=== PATIENT | female | born 1980 | race Hispanic/Latino ===

== ENCOUNTER 2019-04-06 06:12 | Emergency (ER) | payer SELFPAY ==
[2019-04-06 06:34] VITALS: BP 121/68
[2019-04-06 06:53] LABS: Basophils % (Auto) 0.3 % (0.0-1.8); Eosinophils # (Auto) 0.1 K/mm3 (0.0-0.4); Eosinophils % (Auto) 0.9 % (0.0-4.3); Hematocrit 35.5 % (30.3-42.9); Hemoglobin 11.7 gm/dl (10.1-14.3); Lymphocytes % (Auto) 23.7 % (13.4-35.0); Mean Corpuscular HGB Conc 33 % (30-34); Mean Corpuscular Volume 89 fl (79-97); Monocytes % (Auto) 11.5 % (0.0-7.3); Platelet Count 386 K/mm3 (140-440); Red Blood Count 3.97 M/mm3 (3.65-5.03); Red Cell Distribution Width 17.7 % (13.2-15.2)
[2019-04-06 07:03] LABS: BUN/Creatinine Ratio 20; Blood Urea Nitrogen 16 mg/dL (7-17); Calcium 8.7 mg/dL (8.4-10.2); Hemolysis Index 0
--- NOTE | 2019-04-06 07:23 | Emergency Department Report ---
ED General Adult HPI - General Chief complaint: Psych Stated complaint: BLISTERS ON FEET/MH EVAL/MED REFILL Time Seen by Provider: 04/06/19 06:52 Source: patient, EMS Mode of arrival: Stretcher Limitations: No Limitations - History of Present Illness Initial comments: 39-year-old female presents to ED via EMS. Patient reports she has been smoking crack, walking all around, and has blisters to her feet. Patient reports the history of bipolar and schizophrenia, states she has been off her medication for one month, however she does not know the names of her medications. Patient denies SI, HI, or hallucinations. Patient states she is "exhausted" and needs to lie down for a bit. -: unknown Location: left, right, lower extremity Consistency: constant Improves with: immobilization Worsens with: other (walking) Associated Symptoms: denies other symptoms - Related Data Allergies Allergy/AdvReac Type Severity Reaction Status Date / Time naproxen Allergy Unknown Verified 04/06/19 06:26 ED Review of Systems ROS: Stated complaint: BLISTERS ON FEET/MH EVAL/MED REFILL Other details as noted in HPI Comment: All other systems reviewed and negative Musculoskeletal: other (reports foot pain ) Skin: other (reports blisters) Psychiatric: denies: auditory hallucinations, homicidal thoughts, suicidal thoughts ED Past Medical Hx - Past Medical History Previous Medical History?: Yes Hx Psychiatric Treatment: Yes Additional medical history: bipolar, schizophrenia - Surgical History Past Surgical History?: No - Social History Smoking Status: Current Every Day Smoker ED Physical Exam - General Limitations: No Limitations General appearance: alert, in no apparent distress, other (appears unkempt) - Head Head exam: Present: atraumatic, normocephalic - Eye Eye exam: Present: normal appearance - ENT ENT exam: Present: mucous membranes moist - Neck Neck exam: Present: normal inspection - Respiratory Respiratory exam: Present: normal lung sounds bilaterally. Absent: respiratory distress - Cardiovascular Cardiovascular Exam: Present: regular rate, normal rhythm - GI/Abdominal GI/Abdominal exam: Absent: distended - Extremities Exam Extremities exam: Present: other (blisters to bilateral feet, no purulent discha rge or evidence of infection) - Neurological Exam Neurological exam: Present: alert, oriented X3 - Psychiatric Psychiatric exam: Present: normal affect, normal mood. Absent: homicidal ideation, suicidal ideation - Skin Skin exam: Present: warm, dry, intact, normal color ED Course Vital Signs 04/06/19 06:33 Temperature 98 F Pulse Rate 70 Respiratory 16 Rate Blood Pressure 121/68 [Right] O2 Sat by Pulse 97 Oximetry ED Medical Decision Making - Lab Data Result diagrams: 04/06/19 06:35 04/06/19 06:35 - Medical Decision Making No SI, HI, or psychotic features present. Pt given info for outpt follow-up for medications. Does not meet inpatient criteria, will discharge at this time. - Differential Diagnosis drug abuse, bipolar, schizophrenia Critical care attestation.: If time is entered above; I have spent that time in minutes in the direct care of this critically ill patient, excluding procedure time. ED Disposition Clinical Impression: Blister of foot, Cocaine abuse Disposition: TO HOME OR SELFCARE Is pt being admited?: No Condition: Stable Instructions: Blister (ED) Referrals: [facility] [Outside] - 3-5 Days [facility] [Outside] - 3-5 Days [facility] [Provider Group] - 3-5 Days [facility] [Outside] - 3-5 Days Time of Disposition: 07:24
== END 2019-04-06 08:04 | disposition home or self-care (01) ==
LOC: ED 06:12
DX: S90.822A Blister (nonthermal), left foot, initial encounter (principal); S90.821A Blister (nonthermal), right foot, initial encounter; F31.9 Bipolar disorder, unspecified; F20.9 Schizophrenia, unspecified; F17.200 Nicotine dependence, unspecified, uncomplicated; Z88.8 Allergy status to other drugs, medicaments and biological substances; X58.XXXA Exposure to other specified factors, initial encounter; Y93.89 Activity, other specified; Y92.89 Other specified places as the place of occurrence of the external cause; Y99.8 Other external cause status
CPT/HCPCS: 36415; 80048; 80320; 84703; 85025; G0480

== ENCOUNTER 2019-04-06 20:16 | Emergency (ER) | payer MEDICARE ==
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
[2019-04-06 21:53] LABS: Basophils % (Auto) 0.5 % (0.0-1.8); Eosinophils # (Auto) 0.1 K/mm3 (0.0-0.4); Eosinophils % (Auto) 0.9 % (0.0-4.3); Hematocrit 35.2 % (30.3-42.9); Hemoglobin 11.5 gm/dl (10.1-14.3); Lymphocytes # (Auto) 2.7 K/mm3 (1.2-5.4); Lymphocytes % (Auto) 26.2 % (13.4-35.0); Mean Corpuscular HGB Conc 33 % (30-34); Mean Corpuscular Volume 90 fl (79-97); Monocytes % (Auto) 9.5 % (0.0-7.3); Platelet Count 411 K/mm3 (140-440); Red Blood Count 3.93 M/mm3 (3.65-5.03); Red Cell Distribution Width 17.6 % (13.2-15.2)
[2019-04-06 22:00] LABS: BUN/Creatinine Ratio 19; Blood Urea Nitrogen 15 mg/dL (7-17); Calcium 8.7 mg/dL (8.4-10.2); Hemolysis Index 3
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
[2019-04-07 01:11] LABS: Bacteria,Urine 2+ /HPF (Negative); Bilirubin,Urine NEG (Negative); Blood,Urine NEG (Negative); Color,Urine Amber (Yellow); Mucus,Urine 3+ /HPF; Urobilinogen,Urine < 2.0 mg/dL (<2.0)
[2019-04-07 01:14] LABS: Amphetamine Screen,Urine PRESUMPTIVE NEGATIVE; Benzodiazepines Screen,Urine PRESUMPTIVE NEGATIVE; Methadone Screen,Urine PRESUMPTIVE NEGATIVE; Opiate Screen,Urine PRESUMPTIVE NEGATIVE
[2019-04-07 01:49] LABS: Cannabinoid Screen,Urine PRESUMPTIVE POSITIVE; Cocaine Screen,Urine PRESUMPTIVE POSITIVE
[2019-04-07] MEDS ORDERED: POTASSIUM CHLORIDE ER 20 MEQ TAB PO ONE (02:01)
[2019-04-07] MEDS ORDERED: levoFLOXacin 500 MG TAB PO SCH (02:02)
--- NOTE | 2019-04-07 10:33 | Consultation ---
History of Present Illness - Reason for Consult Consult date: 04/07/19 Reason for consult: Mental Health Evaluation Requesting physician: RICK DE LEÓN - Chief Complaint Chief complaint: "I need help for my drug use" - History of Present Psychiatric Illness 39 y.o. white female who presented to the ER for SI's. The patient was seen twice on 04/06/2019. Psychiatry was consulted to see the patient for Si's. Today the patient was calm during the assessment. She stated that her mental state isn't right. She stated that she have been using drugs for several years and want help. She stated that she has a hx of depression and took several antidepressants in the past. She stated that her dug abuse is driving her "crazy." She rate her depression 6/10, with 10 being the worse. She would not confirm or deny SI's when asked. She denies any previous suicide attempts in the past. She denies HI's and AVH's. She denies a poor appetite, but acknowledged erratic sleep because of her "drug binge" recently. She denies alcohol consumption (etoh). Medications and Allergies Allergies Allergy/AdvReac Type Severity Reaction Status Date / Time naproxen Allergy Unknown Verified 04/06/19 06:26 Home Medications Medication Instructions Recorded Confirmed Last Taken Type No Known Home Medications [No 04/07/19 04/07/19 Unknown History Reported Home Medications] Active Meds: Active Medications Levofloxacin (Levaquin) 500 mg PO QDAY JONO Stop: 04/09/19 02:02 Last Admin: 04/07/19 02:09 Dose: 500 mg Documented by: Past psychiatric history - Past Medical History Past Medical History: No medical history Past Surgical History: No surgical history - past Psychiatric treatment and history psychiatric treatment history: Hx of depression and substance abuse. Denies a fam psy hx. - Social History Social history: other (Homeless) Mental Status Exam - Vital signs Last Vital Signs Temp 98.2 F 04/07/19 08:02 Pulse 78 04/07/19 08:02 Resp 18 04/07/19 08:02 BP 136/62 04/07/19 08:02 Pulse Ox 97 04/07/19 08:02 - Exam Narrative exam: MSE: Appearance: calm Behavior: regular eye contact Speech: regular rate and tone Mood: "depressed" Affect: congruent to mood Thought Process: circumstantial Thought Content: denies HI's and AVH's Motor Activity: sitting up in bed Cognition: A/O x3 Insight: fair Judgment: variable Results Result Diagrams: 04/06/19 21:19 04/06/19 21:19 Abnormal lab results 04/06/19 04/06/19 04/06/19 Range/Units 21:19 21:19 21:19 RDW (13.2-15.2) % [place] % (Auto) (0.0-7.3) % [place] # (0.0-0.8) K/mm3 Potassium 3.3 L (3.6-5.0) mmol/L Carbon Dioxide 21 L (22-30) mmol/L Ur Specific [place] (1.003-1.030) Urine WBC (Auto) (0.0-6.0) /HPF Salicylates < 0.3 L (2.8-20.0) mg/dL Acetaminophen < 5.0 L (10.0-30.0) ug/mL 04/06/19 04/07/19 Range/Units 21:19 00:37 RDW 17.6 H (13.2-15.2) % [place] % (Auto) 9.5 H (0.0-7.3) % [place] # 1.0 H (0.0-0.8) K/mm3 Potassium (3.6-5.0) mmol/L Carbon Dioxide (22-30) mmol/L Ur Specific [place] 1.032 H (1.003-1.030) Urine WBC (Auto) 100.0 H (0.0-6.0) /HPF Salicylates (2.8-20.0) mg/dL Acetaminophen (10.0-30.0) ug/mL All other labs normal. Assessment and Plan Assessment and plan: Impression: MDD. Unspecified Psychosis. Substance Use DO (cocaine). Cannabis Use DO. Today the patient was calm during assessment. DDX: Substance Induced Mood DO Recommendation/Plan: Continue 1013 and start Zoloft 50 mg PO daily for depression and Melatonin 5 mg Po HS for sleep. Discussed possible suicidality/medication induced ian with the patient reference Zoloft, she verbalized understanding. Dispo: The patient was referred to inpatient psy services. Staffed with Dr Ambrosio Gold.
[2019-04-07] MEDS ORDERED: SERTRALINE 25 MG TAB PO SCH (11:00)
[2019-04-07] MEDS ORDERED: MELATONIN 5 MG TAB PO SCH (22:00)
[2019-04-07 22:36] VITALS: BP 143/98
== END 2019-04-07 21:13 ==
LOC: ED 20:16 → EEVIPCON 20:16 → ED 04-07 21:13
DX: F14.10 Cocaine abuse, uncomplicated (principal); F31.9 Bipolar disorder, unspecified; F20.9 Schizophrenia, unspecified; F17.200 Nicotine dependence, unspecified, uncomplicated; Z88.5 Allergy status to narcotic agent
CPT/HCPCS: 36415; 80048; 80307; 80320; 81001; 84703; 85025; 87086; 99285; G0480